=== PATIENT | female | born 1975 | race Caucasian/White ===

== ENCOUNTER 2018-08-11 15:32 | Emergency (ER) | payer OTHER ==
[2018-08-11] MEDS ORDERED: PREDNISONE 20 MG TABLET ONE (15:48)
[2018-08-11] MEDS ORDERED: IPRATROPIUM/ALBUTEROL SULFATE 3 ML SOLUTION IH ONE ×2 (15:50→17:06)
[2018-08-11 16:16] LABS: BASOPHILS % (AUTO) 0.7 % (0.0-5.0); EOSINOPHILS % (AUTO) 0.6 % (0.0-8.0); HEMATOCRIT 42.3 % (36-48); LYMPHOCYTES % (AUTO) 32.1 % (21.0-51.0); MEAN CORPUSCULAR HEMOGLOBIN 29.1 pg (27.0-33.0); MEAN CORPUSCULAR HGB CONC 33.2 g/dL (32.0-36.0); MEAN CORPUSCULAR VOLUME 87.6 fL (79-99); NEUTROPHILS % (AUTO) 62.6 % (40.0-77.0); PLATELET COUNT (AUTO) 374 K/uL (130-400); RED BLOOD CELL COUNT(AUTO) 4.83 MIL/uL (4.00-5.50); WHITE BLOOD COUNT (AUTO) 11.9 K/uL (4.8-10.8)
[2018-08-11 16:57] LABS: BILIRUBIN,URINE Negative (NEGATIVE); COLOR,URINE Yellow (YELLOW); GLUCOSE, URINE (UA) Negative (NEGATIVE); KETONES,URINE Negative (NEGATIVE); LEUKOCYTE ESTERASE ,URINE Negative (NEGATIVE); NITRATE,URINE Negative (NEGATIVE); OCCULT BLOOD,URINE Negative (NEGATIVE); PROTEIN,URINE Negative (NEGATIVE); UROBILINOGEN,URINE 0.2 mg/dL (0.2-1.0)
[2018-08-11 17:01] LABS: APPEARANCE,URINE CLEAR (CLEAR)
== END 2018-08-11 17:53 | disposition home or self-care (01) ==
LOC: EDH 15:32
DX: J45.901 Unspecified asthma with (acute) exacerbation (principal)
CPT/HCPCS: 36415; 71046; 81003; 84484; 85025; 87804; 93005; 94640